=== PATIENT | male | born 2000 ===

== ENCOUNTER 2025-01-13 17:47 | Outpatient (REF) | payer MEDICAID, SELFPAY ==
[2025-01-13 16:14] LABS: ALT 25 U/L (16-63); AST 15 U/L (15-37); Albumin 4.3 g/dL (3.4-5.0); Alkaline Phosphatase 70 U/L (46-116); Anion Gap 8.0 mmol/L (3-11); BUN 8 mg/dL (7-18); Bilirubin, Total 1.7 mg/dL (0.2-1.0); CO2 29.0 mmol/L (21.0-32.0); Calcium 9.0 mg/dL (8.5-10.1); Chloride 106 mmol/L (98-107); Estimated GFR 107.12 (mL/min/1.73m2); Glucose 91 mg/dL (74-106); Potassium 4.1 mmol/L (3.5-5.1); Sodium 143 mmol/L (136-145); Total Protein 6.7 g/dL (6.4-8.2)
[2025-01-13 23:28] LABS: HIV-1/2 Ag & Ab Screen Negative (Negative)
[2025-01-13 23:31] LABS: Hepatitis C Ab w Rflx HCV PCR Negative (Negative)
== END 2025-01-13 17:48 | disposition home or self-care (01) ==
LOC: NCHCN 17:47
PROVIDERS: Visit Provider Nurse Practitioner Family
DX: Z79.899 Other long term (current) drug therapy (principal); Z11.4 Encounter for screening for human immunodeficiency virus [HIV]; Z11.59 Encounter for screening for other viral diseases
CPT/HCPCS: 80053; 86803; 87389